=== PATIENT | female | born 1980 | race Caucasian/White ===

== ENCOUNTER 2018-07-08 11:54 | Emergency (ER) | payer OTHER ==
[~2018-07-08] VITALS: Ht 170.2 cm; Wt 74.8 kg
[2018-07-08 12:15] VITALS: BP 144/91
[2018-07-08] MEDS ORDERED: IBUPROFEN 800 MG TAB PO ONE (13:30)
== END 2018-07-08 13:58 | disposition home or self-care (01) ==
LOC: ER 11:58
DX: S96.912A Strain of unspecified muscle and tendon at ankle and foot level, left foot, initial encounter (principal); F17.210 Nicotine dependence, cigarettes, uncomplicated; W01.0XXA Fall on same level from slipping, tripping and stumbling without subsequent striking against object, initial encounter; Y93.89 Activity, other specified; Y99.8 Other external cause status; Y92.89 Other specified places as the place of occurrence of the external cause
CPT/HCPCS: 73610; 73630

== ENCOUNTER 2023-08-08 09:06 | Emergency (ER) | payer OTHER ==
[~2023-08-08] VITALS: Ht 170.2 cm; Wt 85.4 kg
[2023-08-08 10:35] VITALS: BP 146/93; PULSE 101; RESP 16; TEMP 97.7; O2SAT 98
[2023-08-08] MEDS ORDERED: KETOROLAC TROMETH 60MG/2ML VIAL IM ONE (10:45)
[2023-08-08] MEDS ORDERED: MELO7.5T7 PO (12:13)
== END 2023-08-08 12:21 | disposition home or self-care (01) ==
LOC: ER 09:06
DX: S86.812A Strain of other muscle(s) and tendon(s) at lower leg level, left leg, initial encounter (principal); F17.210 Nicotine dependence, cigarettes, uncomplicated; Z88.8 Allergy status to other drugs, medicaments and biological substances; Z79.899 Other long term (current) drug therapy; W01.0XXA Fall on same level from slipping, tripping and stumbling without subsequent striking against object, initial encounter; Y93.89 Activity, other specified; Y92.89 Other specified places as the place of occurrence of the external cause; Y99.8 Other external cause status
CPT/HCPCS: 73562; 96372; 99283; J1885